=== PATIENT | female | born 1970 | race Hispanic/Latino ===

== ENCOUNTER 2024-11-08 08:24 | Outpatient (CLI) | payer OTHER | END 2024-11-08 08:25 | disposition home or self-care (01) | LOC: BICRAD 08:24 | PROVIDERS: ATTEND Family Medicine | DX: M25.561 Pain in right knee (principal); I10 Essential (primary) hypertension; M65.331 Trigger finger, right middle finger; M79.672 Pain in left foot; M79.671 Pain in right foot; M17.11 Unilateral primary osteoarthritis, right knee; M79.89 Other specified soft tissue disorders | CPT/HCPCS: 71046 ==